=== PATIENT | male | born 1945 | race Caucasian/White ===

== ENCOUNTER → 2023-05-26 07:18 | Outpatient (REF) | payer MEDICARE, OTHER, SELFPAY | LOC: RAD 07:18 | PROVIDERS: ATTENDING PHYSICIAN Family Medicine | DX: R10.9 Unspecified abdominal pain (principal) | CPT/HCPCS: 74176 ==

== ENCOUNTER → 2023-05-29 11:56 | Outpatient (REF) | payer MEDICARE, OTHER, SELFPAY | LOC: PAVMRI 11:56 | PROVIDERS: ATTENDING PHYSICIAN Specialist; FAMILY PHYSICIAN Family Medicine | DX: K86.2 Cyst of pancreas (principal) | CPT/HCPCS: 74183; A9575 ==

== ENCOUNTER → 2023-11-03 14:42 | Outpatient (REF) | payer MEDICARE, OTHER, SELFPAY | LOC: HWRAD 14:42 | PROVIDERS: ATTENDING PHYSICIAN Family Medicine | DX: N20.0 Calculus of kidney (principal) | CPT/HCPCS: 74176 ==

== ENCOUNTER 2023-12-12 06:11 | Day surgery (SDC) | payer MEDICARE, OTHER, SELFPAY ==
[2023-12-12] VITALS (8 sets, daily range): BP systolic 112–147; BP diastolic 49–73; BMI 23.9
[2023-12-12 10:02] LABS: Glucose - Point of Care 96 mg/dl (70-99)
[2023-12-12] MEDS: TYLENOL 1000 MG PO (10:16)
[2023-12-12] MEDS: NORMOSOL-R/PLASMALYTE-A 1000 IV (10:18)
--- NOTE | 2023-12-12 10:27 | W.SUR.PREOP ---
Pre-Operative Surgical Note
-
I have examined this patient prior to the performance of the scheduled procedure.
The patient's condition is unchanged from the time of the current History and
Physical and the patient is able to undergo the scheduled procedure.
--- NOTE | 2023-12-12 12:24 | W.IMMPOSTOP ---
Surgical Immed Post Op Note
-
Primary Surgeon: Samy Joseph MD
Assisting Surgeon: None
Pre-op Diagnosis: Biliary colic
Post-op Diagnosis: Same
Procedure Performed: Laparoscopic cholecystectomy with cholangiogram
Anesthesia Type: General
Specimen / Cultures: Gallbladder and contents
Estimated Blood Loss: 7 cc
Complications: None
Operative Findings: Fairly normal-appearing gallbladder with a fatty cystic triangle. Critical view of safety obtained prior to a cholangiogram which demonstrated no distal filling defects and normal biliary anatomy. Duct ligated with a clip
followed by a 0 PDS Endoloop.
--- NOTE | 2023-12-12 12:25 | OR.RPT ---
Operative Report
Operative Report
Patient Name: Kevon Montes
: 1945
Date of Operation: 12/12/2023
Preoperative Diagnosis: Symptomatic Cholelithiasis
Postoperative Diagnosis: Same
Procedure(s):
Laparoscopic Cholecystectomy with Cholangiogram
Surgeon(s):
Dr. Joseph
Learning Technologist(s):
MATA Young
Anesthesia: General
Estimated Blood Loss: 7 cc
Urine Output: None
Drains/Lines/Implants: None
Specimens:
1. Gallbladder and contents
HPI/Surgical Indications:
This is a 78-year-old male who presents with abdominal pain. Exam, labs and imaging are consistent with symptomatic cholelithiasis. Risks/Benefits/Alternatives were discussed at length, and the patient agreed to proceed with surgery.
Operative Findings: Fairly normal-appearing gallbladder with a fatty cystic triangle. Critical view of safety obtained prior to a cholangiogram which demonstrated no distal filling defects and normal biliary anatomy. Duct ligated with a clip
followed by a 0 PDS Endoloop.
Procedure Description:
The patient was brought to the Operating Room and placed in the supine position. IV antibiotics were infused and sequential compression devices were confirmed to be on. Following uneventful induction of general endotracheal anesthesia, an
orogastric tube was placed. The abdomen was prepped and draped in the usual sterile fashion. The abdomen was entered using an open infraumbilical Eulogio technique with a 12 mm balloontipped trocar. Pneumoperitoneum to 15 mmHg pressure was obtained
without difficulty and we confirmed that no injury had occurred during our entry. The patient was positioned in reverse trendelenberg and rotated with the right side up slightly. Three (3) 5mm trocars were then placed along the right subcostal
margin. A locking grasping forceps was placed on the fundus of the gallbladder where it was then retracted cephalad and to the right. Using appropriate grasping instruments, the peritoneum overlying the triangle of Calot was incised. The cystic
duct/gallbladder junction was identified, dissected circumferentially. The cystic artery was identified medially and was dissected circumferentially. A critical view was obtained. A clip was then placed on the cystic duct/gallbladder junction and
an intraoperative cholangiogram performed using fluoroscopy, which showed good flow of dye into the duodenum. There were no intra- or extrahepatic bile duct filling defects. The biliary anatomy appeared normal. Following completion of the
cholangiogram, the catheter was removed. Two clips were then placed proximally on the cystic duct and the duct divided. The stump was reinforced with a 0 PDS Endoloop. Two clips were placed proximally and one distally on the cystic artery, and
the artery was divided. There was an additional branch which appeared to be posterior cystic artery which was also clipped and divided. The remaining soft tissue attachments of the gallbladder to the liver bed were then divided using
electrocautery. There was no spillage of bile or stones. The gallbladder bed was inspected and excellent hemostasis was obtained. The gallbladder was extracted through the 12 mm trocar site using an endocatch bag. The abdomen was again irrigated
and excellent hemostasis was assured. All remaining trocars were then removed and the pneumoperitoneum was evacuated. The 12 mm trocar site was closed using a figure of 8 of 0 PDS. All trocar sites were closed at the skin level using 4-0 Monocryl
followed by Dermabond. Overall, the patient tolerated the procedure well and was taken to the Recovery Room postoperatively in stable condition.
I was the attending physician and performed the procedure with assistance from the FISHING LINE WINDING MACHINE OPERATOR above. I was present for all portions of the case, excluding skin closure.
Samy Joseph MD
[2023-12-12 13:21] LABS: Glucose - Point of Care 202 mg/dl (70-99)
[2023-12-12] MEDS: MOTRIN 600 MG PO (13:32)
== END 2023-12-12 14:32 | disposition home or self-care (01) ==
LOC: SDS 06:11
PROVIDERS: ATTENDING PHYSICIAN Surgery
DX: K80.10 Calculus of gallbladder with chronic cholecystitis without obstruction (principal)
CPT/HCPCS: 47563; 88304; 74300; 76000; 82962; A4300

== ENCOUNTER → 2024-10-04 13:18 | Outpatient (REF) | payer MEDICARE, OTHER, SELFPAY | LOC: PAVMRI 13:18 | PROVIDERS: ATTENDING PHYSICIAN Specialist; FAMILY PHYSICIAN Family Medicine | DX: K86.2 Cyst of pancreas (principal) | CPT/HCPCS: 74183; A9575 ==

== ENCOUNTER 2025-02-15 23:37 | Inpatient (IN) | payer MEDICARE, OTHER, SELFPAY ==
[2025-02-15 20:19] VITALS: BP 144/68
[2025-02-15 20:25] VITALS: BMI 25.2
[2025-02-15 20:26] LABS: Hematocrit 33.9 % (39.0-52.0); Hemoglobin 11.8 g/dL (13.0-18.0); Mean Corp Hgb Conc. 34.8 g/dL (33.0-37.0); Mean Corpuscular Volume 84.8 fL (80.0-94.0); Nucleated Red Blood Cells % 0 % (-); Platelet Count 201 10^3/uL (130-400); Red Cell Dist. Width 12.5 % (11.5-14.5)
[2025-02-15] MEDS: NSS 1000 IV (20:29)
[2025-02-15 20:49] LABS: ALT (SGPT) 30 U/L (0-50); AST (SGOT) 31 U/L (17-59); Albumin 4.5 g/dl (3.5-5.0); Alkaline Phosphatase 49 U/L (38-126); Blood Urea Nitrogen 18 mg/dl (9-20); Calcium 9.8 mg/dl (8.4-10.2); Carbon Dioxide 24 mmol/L (22-30); Chloride 95 mmol/L (98-107); Estimated Creatinine Clearance 32 ml/min; Glucose 124 mg/dl (70-99); Lipase 182 U/L (23-300); Potassium 3.6 mmol/L (3.5-5.1); Sodium 128 mmol/L (135-145); Total Protein 7.2 g/dl (6.3-8.2); eGFR 41.01
[2025-02-15 21:23] LABS: Urine Character Clear (Clear)
[2025-02-15 21:31] LABS: Urine Squamous Cell 0-2 /LPF (Few)
[2025-02-15 21:32] LABS: Urine White Cell 0-2 /HPF (0-5)
[2025-02-15 21:51] VITALS: BP 114/61
--- NOTE | 2025-02-15 22:13 | ED.GENMED ---
History of Present Illness
General
Chief Complaint: Flank Pain
Source: patient
Exam Limitations: none
Time Seen by Provider: 02/15/25 20:20
Nursing documentation reviewed up to this point in time: agreed with
History of Present Illness
History of Present Illness:
79-year-old male with history as noted presents to the ER for evaluation of flank pain. Patient reports onset of symptoms 4 days ago and symptoms have been intermittent but generally worsening over that period of time. He reports a sharp pain in
the right flank radiates towards the mid back. No clear triggering or relieving factors noted. Associated with mild nausea but no vomiting. Denies any dysuria, hematuria, change urinary frequency. No diarrhea or constipation. He reports similar
symptoms with kidney stones in the past. He received Zofran and Toradol from EMS and that seemed to improve his symptoms.
Review of Systems
Review of Systems
All Other Systems: ROS reviewed and negative except as documented in HPI and ROS
Constitutional: Denies fever
Respiratory: Denies trouble breathing
Cardiac: Denies chest pain
ABD/GI: Reports abdominal pain and nausea; Denies vomiting, diarrhea or constipated
: Reports flank pain; Denies dysuria, frequency or bleeding
Musculoskeletal: Denies neck pain
Neurological: Denies headache
Phy Exam
Physical Exam
Physical Exam:
General: Awake, alert, oriented x3; no acute distress
Head: Normocephalic, atraumatic
Eyes: Conjunctiva normal, sclera anicteric
Throat: Airway intact, handling secretions
Neck: Trachea midline, supple without meningismus
Lungs: Clear to auscultation bilaterally, no wheezing, rales, rhonchi
Heart: Regular rate and rhythm, no murmurs, gallops, or rubs
Abd: Soft, non distended, nontender
Back: No CVA tenderness
Neuro: Grossly intact
Skin: no rash in area of concern
Extremities: Warm well-perfused
Scores
Heart Failure Risk
Heart Failure Risk Score: Not Applicable
Heart Score for Chest Pain Patients
STEMI patient?: Not applicable
Withdrawal Assessment of Alcohol
Withdrawal Assessment Completed?: Not applicable
Course
Orders/Labs/Results
Orders:
Orders
02/15/25 20:18
Complete Blood Count/With Diff Urgent
Comprehensive Metabolic Panel Urgent
Lipase Urgent
02/15/25 20:26
CT Abd/pel Without Iv Or Oral Urgent
Comment:
Reason For Exam: right flank pain, h/o kidney stones
0.9% Sodium Chloride 1000 ml [Nss] 1,000 ml IV BOLUS
02/15/25 21:16
Urinalysis Reflex To Culture Urgent
Date Specimen was Collected: 02/15/25
Time Specimen was Collected: 21:13
Urine Microscopic Reflex Cult Urgent
02/15/25 22:06
Morphine Sulfate 4 mg IV NOW STA
02/15/25 22:45
UROLOGY CONSULT Urgent
Consulting Provider: Gerry Juarez
Was physician already notified: Yes
Tamsulosin [Flomax] 0.4 mg PO NOW STA
Abnormal Lab Results
02/15/25 02/15/25
20:18 21:16
RBC 4.00 L 10^6/uL
(4.70-6.10)
Hgb 11.8 L g/dL
(13.0-18.0)
Hct 33.9 L %
(39.0-52.0)
Absolute Neuts (auto) 6.9 H 10^3/uL
(1.4-6.5)
Absolute Monos (auto) 1.0 H 10^3/uL
(0.1-0.6)
Lymphocytes % 13.0 L %
(20.5-51.1)
Monocytes % 11.1 H %
(1.7-9.3)
Sodium 128 L mmol/L
(135-145)
Chloride 95 L mmol/L
(98-107)
Creatinine 1.7 H mg/dL
(0.7-1.3)
Glucose 124 H mg/dl
(70-99)
Ur Occult Blood Reflex 3+ A
(Negative)
Urine RBC 3-6 A /HPF
(0-2)
Urine Albumin (Reflex) 1+ A
(Neg - Trace)
02/15/25 20:18
02/15/25 20:18
Vital Signs
Initial and Last Documented VS:
Initial Vital Signs
Temp Pulse Resp BP Pulse Ox
36.9 C 80 18 144/68 97
02/15/25 20:19 02/15/25 20:19 02/15/25 20:19 02/15/25 20:19 02/15/25 20:19
Last Documented Vital Signs
Temp Pulse Resp BP Pulse Ox
36.9 C 72 18 114/61 95
02/15/25 20:19 02/15/25 21:51 02/15/25 21:51 02/15/25 21:51 02/15/25 22:16
MDM/Problems Addressed
Differential Diagnosis Includes:
Nephrolithiasis, UTI, appendicitis, cholelithiasis/cholecystitis, muscular pain
MDM/Problems Addressed:
79-year-old male presents for evaluation of right flank pain for the past few days similar to prior kidney stones. Received Zofran and Toradol from EMS which improved his symptoms. Vital signs are normal here. Physical exam as above. Will plan
to place an IV check labs including a CBC and a CMP, urinalysis. Will check CT abdomen. Provide IV fluids. Nausea and pain control as needed. Reassess after the above.
Labs reviewed: CBC shows no clinically significant abnormalities. Chemistry shows NAYE with a creatinine of 1.7 from baseline of 1.1. Mild hyponatremia. His urinalysis is positive for blood but no infection. CT reviewed by me shows obstructive
stone at the distal UVJ on the right with hydronephrosis�awaiting final report.
CT report reviewed�9 mm stone at the UVJ with hydronephrosis. With very large stone and NAYE will plan to admit for continued management. Discussed case with urology for consultation. Discussed case with hospitalist for admission.
*Radiology
Radiology exam reviewed: preliminary read by ED provider and radiology read reviewed
*Pulse Oximetry
SaO2: 95
Oxygen Mode of Delivery: Room air
Patient hypoxic: no (95%)
*Critical Care Note
Total Time (30-74mins, 75-104mins- exclusive of procedures): Not Applicable
Data Reviewed
Source: patient, records and ambulance crew
Patient Management
Discussion with other providers: Hospitalist (Discussed with hospitalist) and Pool Table Operator (Discussed with urology)
Escalation/DeEscalation of care consider admission/obs:
Admission indicated
ED Attending Note
-
Portions of this chart may have been created with voice recognition software.� Occasional wrong word or��sound alike� substitutions may have occurred due to the inherent limitations of voice recognition software.
Discharge Plan
Departure
Patient Disposition: Admit
Date of Disposition: 02/15/25
Time of Disposition: 22:46
Admit to doctor: Le[facility]
Presentation/result/management discussed w/ accepting MD/DO: Hospitalist
Discharge Problem:
Right nephrolithiasis, NAYE (acute kidney injury)
Prescriptions:
No Action
B12
1,000 mcg PO DAILY
multivitamin Tablet
1 tab PO DAILY
amlodipine 5 mg Tablet
5 mg PO DAILY
aspirin 81 mg Tablet,Delayed Release (Dr/Ec)
81 mg PO DAILY
tamsulosin 0.4 mg Capsule
0.4 mg PO DAILY
ascorbic acid (vitamin C) [Vitamin C] 250 mg Tablet
250 mg PO DAILY
metformin 1,000 mg Tablet
1,000 mg PO BID
ferrous gluconate 240 mg (27 mg iron) Tablet
480 mg PO DAILY
metoprolol succinate 25 mg Tablet Extended Release 24 Hr
25 mg PO BID
loratadine [Claritin] 10 mg Tablet
10 mg PO DAILY
esomeprazole magnesium 20 mg Capsule,Delayed Release(Dr/Ec)
20 mg PO Q48H
rosuvastatin 20 mg Tablet
20 mg PO DAILY
acetaminophen [acetaminophen] 325 mg tablet
650 mg PO Q6HPRN PRN (Reason: mild pain) Qty: 14 0RF
tramadol 50 mg tablet
25 mg PO Q6HPRN PRN (Reason: severe pain/breakthrough pain) Qty: 8 0RF
ibuprofen 600 mg tablet
600 mg PO Q6H PRN (Reason: pain) Qty: 14 0RF
Referrals:
Steve Martin MD [Family Provider, Family Practice]
Interventions
Interventions:
*Risk Screen - Suicide Last Done: 02/15/25 20:25
*General Assessment Last Done: 02/15/25 20:25
*Neglect/Abuse Screening Last Done: 02/15/25 20:25
*ED- Fall Risk Assessment Last Done: 02/15/25 20:25
*ED COVID-19 Vaccine History Last Done: 02/15/25 20:25
*ED Influenza Vaccine History Last Done: 02/15/25 20:25
YI-Xlhiln-Bznfajurmv Assessment Last Done: 02/15/25 20:24
ED-Male Genitourinary Assessment Last Done: 02/15/25 20:24
Discharge Date and Time
Print Language: SLOVENIAN
--- NOTE | 2025-02-15 23:16 | HPS.HSE ---
Family Physician
-
Family Physician: Steve Martin
Chief Complaint
-
Acute onset right flank pain
History of Present Illness
79-year-old male from home with acute onset of right flank pain with urgency 30 minutes prior to arrival in ER. He reports he did have pain 4 days ago that went away but came back today associated with mild nausea but no vomiting. He had past
medical history of obstructing renal calculi in his 20s requiring cystoscopy with stone removal and stent placement. He denies any fever, chills, dysuria, hematuria, vomiting, diarrhea, chest pain, palpitations, cough, shortness of breath.
Past medical history renal calculi, iron deficiency anemia, HTN, HLD, PVCs, prostate cancer status post radiation, DM2, GERD, hiatal hernia, diverticulosis, chronic neck and back pain, herniated disks
Medical History
Past Medical History
Past Medical History: Reports Other
Additional Past Medical History:
renal calculi
iron deficiency anemia
HTN
HLD
PVCs
prostate cancer status post radiation
DM2
GERD
hiatal hernia
diverticulosis
chronic neck and back pain, herniated disks
Past Surgical History: Reports Other
Additional Past Surgical History:
Laparoscopic cholecystectomy with cholangiogram 12/12/2023
Cystoscopy 50 years ago
Tonsillectomy
Renal calculi status post cystoscopy stone removal and stents in his 20s
Social History
Tobacco: Non-smoker
Alcohol: None
Drug: None
Employment: Retired
Family History
Family History: Not pertinent
Allergies / Home Medications
Allergies reflects when Allergies were last updated in [facility].
Home Medications with original date entered in [facility]
Allergy/Medication List:
Allergies
Allergy/AdvReac Type Severity Reaction Status Date / Time
meperidine (From Demerol) Allergy Nausea / Verified 02/15/25 20:17
Vomiting
Home Medications
amlodipine 5 mg tablet 5 mg PO DAILY 12/01/23
ascorbic acid (vitamin C) 250 mg tablet (Vitamin C) 120 mg PO DAILY 12/01/23
aspirin 81 mg tablet,delayed release 81 mg PO DAILY 12/01/23
esomeprazole magnesium 20 mg capsule,delayed release 20 mg PO Q48H 12/01/23
loratadine 10 mg tablet (Claritin) 10 mg PO DAILY 12/01/23
metformin 1,000 mg tablet 500 mg PO BID 12/01/23
metoprolol succinate 25 mg tablet,extended release 24 hr 25 mg PO .DAILYATNOONANDMN 12/01/23
multivitamin 1 tab PO DAILY 12/01/23
rosuvastatin 20 mg tablet 20 mg PO DAILY 12/01/23
tamsulosin 0.4 mg capsule 0.4 mg PO DAILY 12/01/23
acetaminophen 325 mg tablet 650 mg (2 x 325 mg) PO Q6HPRN PRN mild pain #14 tabs 12/12/23
folic acid 400 mcg tablet 0.8 mg PO DAILY 02/15/25
Review of Systems
-
History Source: Patient
A 12 point ROS was completed and negative except as noted: Yes
Constitutional: Denies Fever or Fatigue
EENT: Denies Sore Throat or Runny Nose
Respiratory: Denies Cough or Trouble Breathing
Cardiac: Denies Chest Pain, Diaphoresis or Palpitations
Abdomen/GI: Reports Abdominal Pain (Right flank) and Nausea; Denies Vomiting, Diarrhea or Constipated
: Reports Flank Pain (Right) and Urgency; Denies Dysuria, Frequency, Incontinence or Difficulty Voiding
Musculoskeletal: Denies Joint Pain or Edema
Skin: Denies Itching or Rash
Neurological: Denies Dizzy, Headache or Weakness
Endocrine: Reports No Symptoms
Hematologic/Lymphatic: Reports No Symptoms
Psych: Reports Calm
Physical Exam
Vital Signs
Vital Signs
Temp Pulse Resp BP Pulse Ox
98.5 F 72 18 114/61 95
02/15/25 20:19 02/15/25 21:51 02/15/25 21:51 02/15/25 21:51 02/15/25 22:16
Physical Exam
General: Conversant and Pain; No Fever or Chills
HEENT: NormoCephalic, Anicteric, Moist mucous membranes, PERRLA, [place] Conjunctivae and No Ptosis
Respiratory: Clear; No Wheezes, Rales or Rhonchi
Cardiac: S1/S2 and Regular Rhythm; No Murmur, Rub, Gallop or Peripheral Edema
Breast: Deferred by me
GI: Soft, Non Distended, Normal Bowel Sounds, Tender (Right flank pain) and No Hepatosplenomegaly
Rectal: Deferred by Provider
Genito-urinary: Costovertebral angle tend (Right)
Musculoskeletal: No Clubbing, No Cyanosis and No Edema
Skin: Warm and Dry; No Rash
Neuro: AO x 3, No Motor Deficits, Nonfocal/grossly intact, Cranial Nerves Intact and No Sensory Deficits; No Slurred Speech, Facial Droop, Tremors or Sedated
Psych: Calm
Laboratory Results
-
02/15/25 20:18
02/15/25 20:18
Laboratory Results
Total Bilirubin 1.1 mg/dl (0.2-1.3) 02/15/25 20:18
AST 31 U/L (17-59) 02/15/25 20:18
ALT 30 U/L (0-50) 02/15/25 20:18
Alkaline Phosphatase 49 U/L (38-126) 02/15/25 20:18
Lipase 182 U/L (23-300) 02/15/25 20:18
Data Reviewed
-
Diagnostic Radiology: Report Reviewed by me
Lab Data: Labs Reviewed by me
Impression/Plan
-
Impression/plan:
Admit to MedSurg
#Obstructing right UVJ calculus with moderate right hydroureteronephrosis
#Renal calculi status post cystoscopy stone removal and stents in his 20s
Urinalysis RBC 3-6 0-2 WBC
- IV NSS 150 cc/hr x 1 liter
-IV Dilaudid as needed
-Was given IV Toradol in ER and by EMS will hold further doses due to NAYE
- Flomax 0.4 mg daily
- Consult urology
- N.p.o. for OR a.m.
Follow CBC, CMP
CT abdomen pelvis:9 mm calculus at the right ureterovesical junction with
associated moderate right hydroureteronephrosis.
#NAYE unclear
Creat 1.7 increased from 1.1 baseline
-IV NSS 150 cc/hr
-Follow BMP
#Hyponatremia poss hypovolemic
NA 128
-Will hydrate follow BMP
- check tsh with free t4 refelx, urine na, urine osmo, serum osmo
#Normocytic anemia/iron deficiency
Hgb 11.8 appears near baseline
-Continue folic acid
#HTN
-Continue metoprolol succinate 25 mg twice daily with hold parameters, amlodipine 5 mg daily with hold parameters
#HLD
Continue Crestor 20 mg daily
#PVCs
- Continue metoprolol
#Prostate cancer status post radiation
#DM 2
-Hold metformin
-Accu-Cheks with SSI, check HgbA1c
#GERD
#Hiatal hernia
-Continue esomeprazole or equivalent
#Diverticulosis Hx
#Chronic neck and back pain herniated disks
Tylenol as needed
#Seasonal allergies
Takes Claritin 10 mg daily
DVT prophylaxis
SCDs
Full code
[2025-02-15 23:28] VITALS: BP 130/65
[2025-02-15] MEDS: FLOMAX 0.4 MG PO (23:30)
[2025-02-15] MEDS: TORADOL 15 MG IV (23:31)
--- NOTE | 2025-02-15 23:55 | W.PN.UPDATE ---
Update Note
Progress Note Update
Patient seen in conjunction with nurse practitioner. I agree with the plan/M0. I concur with assessment and plan listed otherwise.
Briefly, this is a 79-year-old male with past medical history significant for GERD, hypertension, nvl-xuzddxz-xqvhkguzi diabetes, hyperlipidemia BPH presenting to the emergency department with acute episode of right-sided flank pain. Symptoms began
only a few minutes prior to coming to the Emergency Department. Denies fevers or chills. Denies nausea or vomiting.
In the ED patient was afebrile, blood pressure open cardiovascular-pulse was 80 and was satting 96% on room air. CBC was completely unremarkable. Electrolytes notable for a sodium of 128. Creatinine was 1.70 from a baseline of 1.1 about [address] scan of the abdomen pelvis showed a 9 mm obstructive stone at the right UVJ.
Assessment and plan
Obstructing nephrolithiasis -
- Admit to MedSurg
- N.p.o.
- Start tamsulosin,
- IV fluids, unlikely to pass
- Urology consulted, patient going to OR in a.m.
- No signs of acute infection, hold off antibiotic
NAYE -creatinine 1.7 from a baseline of 1.1. Possibly has asymmetrical renal function with obstruction on the more functional kidney likely. Does not appear to be dehydrated.
- Aggressive hydration for now
- Avoid nephrotoxin
- Will use pain control with Dilaudid
- Monitor renal function post decompression
Hyponatremia -pain mediated ADH versus chronic hyponatremia
-IV fluids as above
- Check urine sodium and awesome's
- Patient is not on any diuretics
- Check a.m. cortisol and TSH
DM 2
- Holding metformin, sliding scale insulin
DVT prophylaxis�SCDs for now
CODE STATUS�full code
[2025-02-16] VITALS (11 sets, daily range): BP systolic 88–164; BP diastolic 45–86; BMI 24.8
--- NOTE | 2025-02-16 01:15 | PTCARENOTE ---
pt arrived to 2S from ED @ 0115. Pt ambulated to the bed w/o difficulty. Pt AOX3, VSS. Admission assessment complete. IVF initiated as per order. Pt oriented to room, call chauhan within reach, bed locked in lowest position, care ongoing.
[2025-02-16] MEDS: NSS 1000 IV ×2 (01:33→09:09)
[2025-02-16] MEDS: TOPROL XL 25 MG PO ×2 (01:33→18:28)
[2025-02-16 06:04] LABS: Glucose - Point of Care 98 mg/dl (70-99)
[2025-02-16] MEDS: TYLENOL 650 MG PO (06:06)
[2025-02-16 06:33] LABS: Hematocrit 34.6 % (39.0-52.0); Hemoglobin 11.7 g/dL (13.0-18.0); Mean Corp Hgb Conc. 33.8 g/dL (33.0-37.0); Mean Corpuscular Volume 90.1 fL (80.0-94.0); Nucleated Red Blood Cells % 0 % (-); Platelet Count 174 10^3/uL (130-400); Red Cell Dist. Width 12.5 % (11.5-14.5)
[2025-02-16 07:23] LABS: ALT (SGPT) 26 U/L (0-50); AST (SGOT) 26 U/L (17-59); Albumin 3.8 g/dl (3.5-5.0); Alkaline Phosphatase 48 U/L (38-126); Blood Urea Nitrogen 18 mg/dl (9-20); Calcium 9.0 mg/dl (8.4-10.2); Carbon Dioxide 25 mmol/L (22-30); Chloride 103 mmol/L (98-107); Estimated Creatinine Clearance 30 ml/min; Glucose 86 mg/dl (70-99); Sodium 136 mmol/L (135-145); Total Protein 6.3 g/dl (6.3-8.2); eGFR 38.29
[2025-02-16 07:30] LABS: Potassium 3.9 mmol/L (3.5-5.1)
--- NOTE | 2025-02-16 07:41 | W.PN.HOSP.TC ---
Today's Communication/Plan
-
OR today
Assessment / Plan
Assessment / Plan
79M with GERD, HTN, DM, HLD, BPH, P/W acute R flank pain, found to have obstructive nephrolithiasis.
Obstructive nephrolithiasis
NAYE, postrenal
CT shows 9 mm obstructive stone at right UVJ
Creatinine 1.8, monitor BMP
Urology consulted, patient n.p.o. for OR today
IVF
IV Dilaudid for pain
Tamsulosin
Moderate hyponatremia, asymptomatic-resolved
128��>136
Resolved with IV fluids
Urine sodium 38, urine Osm low at 222. Serum Osm 277
TSH WNL
Hypochloremia�resolved
Resolved with IV fluids
HTN
Beta-valdo, amlodipine
DM2
Hold home metformin
SSI/Accu-Cheks
A1c pending
GERD
PPI
DVT PPx
SCDs
FC
Anticipated Discharge: 24 - 48 hours
Subjective/Interval History
-
Date of Service: February 16, 2025
Patient seen prior to surgery, states pain improved from admission
Objective Data
-
Labs:
Laboratory Results
02/15/25 02/16/25
20:18 05:50
WBC 9.3 7.1
Hgb 11.8 L 11.7 L
Hct 33.9 L 34.6 L
Plt Count 201 174
Sodium 128 L 136 D
Potassium 3.6 3.9
Chloride 95 L 103
Carbon Dioxide 24 25
BUN 18 18
Creatinine 1.7 H 1.8 H
Glucose 124 H 86
Calcium 9.8 9.0
Total Bilirubin 1.1 1.2
AST 31 26
ALT 30 26
Alkaline Phosphatase 49 48
Vital Signs:
Vital Signs
Temp Pulse Resp BP Pulse Ox
98.5 F 72 16 143/65 98
02/16/25 01:20 02/16/25 01:33 02/16/25 01:20 02/16/25 01:33 02/16/25 01:20
I&O
02/15/25 02/16/25 02/17/25
06:59 06:59 06:59
Intake Total 825 / 825
Output Total 425 / 425
Balance 400 / 400
Review of Systems
-
All other systems: Reviewed and negative
Physical Exam
-
General: No Apparent Distress
HEENT: Moist Mucous Membranes, Anicteric and PERRLA
Respiratory: Clear to Auscultation; Negative Wheezes, Rales or Rhonchi
Cardiac: Regular Rhythm and S1/S2; Negative Murmur, Rub or Gallop
GI: Soft, Nontender, Nondistended and Normal Bowel Sounds
Musculoskeletal: No Edema
Skin: Warm and Dry; Negative Rash, Ulcers or Lesions
Neuro: Awake and AO x 3
Hematologic / Lymphatic: No Lymphadenopathy
Psych: Calm
Data Reviewed
-
CT Scan: Report Reviewed by me
Labs: Labs Reviewed by me and Discussed with Patient
[2025-02-16] MEDS: CRESTOR 20 MG PO (08:46)
[2025-02-16] MEDS: PROTONIX 40 MG PO (08:46)
[2025-02-16] MEDS: CLARITIN 10 MG PO (08:46)
[2025-02-16] MEDS: FOLVITE 1 MG PO (08:46)
[2025-02-16] MEDS: FLOMAX 0.4 MG PO (08:46)
--- NOTE | 2025-02-16 10:01 | CONS.URO ---
Consultation
-
Date/Time Consultation Performed: 02/16
Performing Provider: Peffer
Reason for Consultation: stone
Medical History
History of Present Illness
79M p/w acute onset of right flank pain with urgency 30 minutes prior to arrival in ER last night
He reports he did have pain 4 days ago that went away but came back associated with mild nausea but no vomiting.
He had past medical history of obstructing renal calculi in his 20s requiring cystoscopy with stone removal and stent placement.
He denies any fever, chills, dysuria, hematuria, vomiting, diarrhea, chest pain, palpitations, cough, shortness of breath.
CT showed a 9mm R distal ureteral stone
No signs of sepsis or systemic infection
He was admitted due to significant NAYE
Past medical history renal calculi, iron deficiency anemia, HTN, HLD, PVCs, prostate cancer status post radiation, DM2, GERD, hiatal hernia, diverticulosis, chronic neck and back pain, herniated disks
Past Medical History
Past Medical History: Other (as above)
Family History
Family History: Reviewed & Not Pertinent
Allergies/Home Medications
Allergies
Allergy/AdvReac Type Severity Reaction Status Date / Time
meperidine (From Demerol) Allergy Nausea / Verified 02/15/25 20:17
Vomiting
Home Medications
�Medication �Instructions �Recorded �Confirmed �Type
amlodipine 5 mg tablet 5 mg PO DAILY 12/01/23 02/15/25 History
ascorbic acid (vitamin C) 250 mg 120 mg PO DAILY 12/01/23 02/15/25 History
tablet (Vitamin C)
aspirin 81 mg tablet,delayed 81 mg PO DAILY 12/01/23 02/15/25 History
release
esomeprazole magnesium 20 mg 20 mg PO Q48H 12/01/23 02/15/25 History
capsule,delayed release
loratadine 10 mg tablet (Claritin) 10 mg PO DAILY 12/01/23 02/15/25 History
metformin 1,000 mg tablet 500 mg PO BID 12/01/23 02/15/25 History
metoprolol succinate 25 mg 25 mg PO .DAILYATNOONANDMN 12/01/23 02/15/25 History
tablet,extended release 24 hr
multivitamin 1 tab PO DAILY 12/01/23 02/15/25 History
rosuvastatin 20 mg tablet 20 mg PO DAILY 12/01/23 02/15/25 History
tamsulosin 0.4 mg capsule 0.4 mg PO DAILY 12/01/23 02/15/25 History
acetaminophen 325 mg tablet 650 mg (2 x 325 mg) PO Q6HPRN PRN 12/12/23 02/15/25 Rx
mild pain #14 tabs
folic acid 400 mcg tablet 0.8 mg PO DAILY 02/15/25 02/15/25 History
Physical Exam
Vital Signs
Vital Signs
Temp Pulse Resp BP Pulse Ox
98.3 F 61 16 117/54 96
02/16/25 07:05 02/16/25 07:05 02/16/25 07:05 02/16/25 07:05 02/16/25 07:05
Lab / Testing Results
Laboratory Results
02/16/25 05:50
02/16/25 05:50
Physical Exam
General: Well Developed, Well Nourished and No Apparent Distress
Respiratory: Clear
Genito-urinary: No Costovertebral Tend
Neuro: AO x 3
Psych: Calm and Intact Judgement
Assessment / Plan
-
79M with NAYE from 9mm R distal ureteral stone
- NPO
- OR this AM for R ureteroscopy/laser/stent
- Abx ppx
- Likely able to go home today
--- NOTE | 2025-02-16 10:07 | PTCARENOTE ---
Report given to PACU, CHG bath done per PCT, transport called and at bedside to take patient to OR.
--- NOTE | 2025-02-16 11:23 | W.IMMPOSTOP ---
Surgical Immed Post Op Note
-
Primary Surgeon: Peffer
Assisting Surgeon: -
Pre-op Diagnosis: R ureteral stone
Post-op Diagnosis: same
Procedure Performed: R ureteroscopy, laser, stone removal, stent placement
Anesthesia Type: general
Specimen / Cultures: stone
Estimated Blood Loss:1cc
Complications: none
Operative Findings: stone removed
[2025-02-16 11:29] LABS: Glucose - Point of Care 104 mg/dl (70-99)
[2025-02-16] MEDS: TOPROL XL PO ×2 (12:13→23:18)
--- NOTE | 2025-02-16 12:14 | TRANSFER ---
Received report from Jasmin in PACU @ 1200. Patient transferred back into 2105 via hospital bed. VSS. Continue with current care.
[2025-02-16 13:43] LABS: Blood Urea Nitrogen 17 mg/dl (9-20); Calcium 8.7 mg/dl (8.4-10.2); Carbon Dioxide 25 mmol/L (22-30); Chloride 105 mmol/L (98-107); Estimated Creatinine Clearance 32 ml/min; Glucose 110 mg/dl (70-99); Potassium 4.3 mmol/L (3.5-5.1); Sodium 137 mmol/L (135-145); eGFR 41.01
[2025-02-16 14:29] LABS: Glycohemoglobin (HgbA1c) 6.0 % (4.0-5.9)
--- NOTE | 2025-02-16 15:02 | CM ---
Initial assessment was completed with pt at bedside.
Pt is a 79yr old male admitted for obstructive kidney stone and received a ureteroscopy with lithotripsy.
At baseline, pt is indep and lives in a 2nd floor apartment. Per pt, there is an elevator, but he often chooses to do the steps.
Pt does not have DME or hx of VN/SNF
PCP Steve Martin
Pharm [facility] [place]
PLAN; Anticipate dc with no needs
[2025-02-16] MEDS: OCEAN, SALINE MIST 2 SPRAYS NASAL (16:38)
[2025-02-16 16:41] LABS: Glucose - Point of Care 130 mg/dl (70-99)
[2025-02-16] MEDS: NSS IV (17:07)
--- NOTE | 2025-02-16 19:26 | PTCARENOTE ---
~1814 Patient called staff to report he is 'having tachycardia', described as 'thumping', patient denies CP/SOB at this time. Patient M/S level of care at this time, VS taken and as documented. EKG performed and resulted NSR rate 92, picture of EKG
TT to Cross coverage MD, order to give patients already ordered 25mg PO XR metoprolol early and place on telemetry. Patient remains in NSR and admits to feeling better. Patient states this 'happens'. Call chauhan within reach, vitals stable, denies
pain, care ongoing. Report given to oncoming RN.
[2025-02-16 22:14] LABS: Glucose - Point of Care 261 mg/dl (70-99)
[2025-02-17] VITALS (7 sets, daily range): BP systolic 116–147; BP diastolic 53–69; PULSE 69
[2025-02-17] MEDS: NSS IV ×2 (01:06→04:32)
[2025-02-17] MEDS: TYLENOL 650 MG PO (04:33)
[2025-02-17 07:03] LABS: Hematocrit 34.9 % (39.0-52.0); Hemoglobin 11.5 g/dL (13.0-18.0); Mean Corp Hgb Conc. 33.0 g/dL (33.0-37.0); Mean Corpuscular Volume 89.5 fL (80.0-94.0); Nucleated Red Blood Cells % 0 % (-); Platelet Count 197 10^3/uL (130-400); Red Cell Dist. Width 12.7 % (11.5-14.5)
[2025-02-17 07:23] LABS: ALT (SGPT) 23 U/L (0-50); AST (SGOT) 24 U/L (17-59); Albumin 3.8 g/dl (3.5-5.0); Alkaline Phosphatase 50 U/L (38-126); Blood Urea Nitrogen 21 mg/dl (9-20); Calcium 8.8 mg/dl (8.4-10.2); Carbon Dioxide 26 mmol/L (22-30); Chloride 103 mmol/L (98-107); Estimated Creatinine Clearance 34 ml/min; Glucose 113 mg/dl (70-99); Potassium 4.1 mmol/L (3.5-5.1); Sodium 137 mmol/L (135-145); Total Protein 6.3 g/dl (6.3-8.2); eGFR 44.10
[2025-02-17 07:25] LABS: Glucose - Point of Care 111 mg/dl (70-99)
[2025-02-17] MEDS: FLOMAX 0.4 MG PO (08:21)
[2025-02-17] MEDS: FOLVITE 1 MG PO (08:21)
[2025-02-17] MEDS: CLARITIN PO (08:26)
[2025-02-17] MEDS: CRESTOR PO (09:36)
--- NOTE | 2025-02-17 10:00 | W.PN.HOSP.TC ---
Today's Communication/Plan
-
Continue IV fluids
Trend creatinine
Probable discharge tomorrow
Assessment / Plan
Assessment / Plan
HPI: 79M with GERD, HTN, DM, HLD, BPH, P/W acute R flank pain, found to have obstructive nephrolithiasis.
Obstructive nephrolithiasis
NAYE, postrenal
CT shows 9 mm obstructive stone at right UVJ
Appreciate urology input, status post cystoscopy with right ureteral stent placement 02/16
Creatinine 1.6 today, was 1.8, baseline value of 1.1 in 2022
Continue IVFs Flomax, trend creatinine
Tamsulosin
Moderate hyponatremia, asymptomatic-resolved
128��>136
Resolved with IV fluids
Urine sodium 38, urine Osm low at 222. Serum Osm 277
TSH WNL
Hypochloremia�resolved
Resolved with IV fluids
HTN
Beta-valdo, amlodipine
DM2
Hold home metformin
SSI/Accu-Cheks
A1c pending
GERD
PPI
DVT PPx - SCDs
Full code
Total time spent to see the patient on the floor, examine the patient, review data and lab results, discuss treatment plan with patient, nursing staff around 38 minutes.
Physical Exam
General: No acute distress
HEENT: Normocephalic, Atraumatic, EOMI, MMM
Respiratory: Clear to Auscultation bilaterally
Cardiac: Normal S1/S2, Regular Rate and Rhythm
GI: Soft, Nontender, Nondistended, Normal Bowel Sounds
Extremities: No Clubbing, Cyanosis, or Edema
Neuro: Nonfocal/Grossly Intact
Psych: Calm, Cooperative
Anticipated Discharge: Within 24 hours
Subjective/Interval History
-
Date of Service: February 17, 2025
Patient reports intermittent dysuria. Denies flank pain, abdominal pain. No nausea, no vomiting. No chest pain, no shortness of breath. No fever.
Objective Data
-
Labs:
Laboratory Results
02/17/25
06:39
WBC 11.9 H
Hgb 11.5 L
Hct 34.9 L
Plt Count 197
Sodium 137
Potassium 4.1
Chloride 103
Carbon Dioxide 26
BUN 21 H
Creatinine 1.6 H
Glucose 113 H
Calcium 8.8
Total Bilirubin 0.9
AST 24
ALT 23
Alkaline Phosphatase 50
Vital Signs:
Vital Signs
Temp Pulse Resp BP Pulse Ox
98.1 F 55 16 118/64 95
02/17/25 08:05 02/17/25 08:24 02/17/25 08:05 02/17/25 08:24 02/17/25 08:05
I&O
02/16/25 02/17/25 02/18/25
06:59 06:59 06:59
Intake Total 825 / 825 530 / 530
Output Total 425 / 425 1150 / 1150 500 / 500
Balance 400 / 400 -620 / -620 -500 / -500
[2025-02-17] MEDS: NSS 1000 IV ×2 (10:25→20:37)
--- NOTE | 2025-02-17 11:23 | PTOTSP ---
The patient is independent with ambulation and elevations, offering no concerns regarding his mobility upon discharge. No PT needs identified at this time, will sign off.
[2025-02-17 12:18] LABS: Glucose - Point of Care 129 mg/dl (70-99)
[2025-02-17] MEDS: TOPROL XL PO (12:22)
--- NOTE | 2025-02-17 14:18 | CM ---
CM following re: discharge planning.
Reviewed pt's chart.
PT and OT evaluations noted - pt has no skilled PT/OT needs.
D/C plan: home no needs. family to transport at discharge.
--- NOTE | 2025-02-17 16:14 | W.PN.URO.CBU ---
Today's Communication / Plan
-
Renal function improving
Typical stent symptoms - can take phenazopyridine as needed for dysuria
- Follow up approx 2 weeks for stent removal
Stable for discharge from urology standpoint
Assessment / Plan
-
79M POD 1 s/p R ureteroscopy of obstructing stone and NAYE
Renal function improving
Typical stent symptoms - can take phenazopyridine as needed for dysuria
- Follow up approx 2 weeks for stent removal
Stable for discharge from urology standpoint
Diagnosis
-
Date of Service: February 17, 2025
-
Patient Diagnosis: kidney stone
Post Op Day: 1 s/p ureteroscopy, stent
Subjective
-
some freuqunecy and hematuria from stent
Objective
-
Vital Signs
Temp Pulse Resp BP Pulse Ox
97.7 F 69 18 144/69 97
02/17/25 16:05 02/17/25 16:05 02/17/25 16:05 02/17/25 16:05 02/17/25 16:05
Intake and Output
02/16/25 02/17/25 02/18/25
06:59 06:59 06:59
Intake Total 825 / 825 530 / 530
Output Total 425 / 425 1150 / 1150 800 / 800
Balance 400 / 400 -620 / -620 -800 / -800
Intake:
Oral fluids 480 / 480
IV fluids (Total) 825 / 825 50 / 50
normosol 50 / 50
Output:
Urine, Voided 425 / 425 1150 / 1150 800 / 800
Laboratory Results
02/17/25 06:39
02/17/25 06:39
Physical Exam
-
General - well developed, well nourished, no acute distress
Chest - clear bilaterally
[2025-02-17 16:50] LABS: Glucose - Point of Care 114 mg/dl (70-99)
[2025-02-17 21:02] LABS: Glucose - Point of Care 131 mg/dl (70-99)
[2025-02-18] MEDS: TOPROL XL PO ×2 (00:45→12:01)
[2025-02-18 02:47] VITALS: BP 129/67
[2025-02-18 07:01] LABS: Glucose - Point of Care 86 mg/dl (70-99)
[2025-02-18 07:31] VITALS: BP 120/67
[2025-02-18] MEDS: CLARITIN PO (07:34)
[2025-02-18] MEDS: FOLVITE 1 MG PO (07:43)
[2025-02-18] MEDS: FLOMAX 0.4 MG PO (07:43)
[2025-02-18] MEDS: PROTONIX 40 MG PO (07:43)
[2025-02-18 07:53] LABS: Hematocrit 31.6 % (39.0-52.0); Hemoglobin 10.8 g/dL (13.0-18.0); Mean Corp Hgb Conc. 34.2 g/dL (33.0-37.0); Mean Corpuscular Volume 88.5 fL (80.0-94.0); Platelet Count 181 10^3/uL (130-400); Red Cell Dist. Width 12.9 % (11.5-14.5)
[2025-02-18 08:29] LABS: Blood Urea Nitrogen 19 mg/dl (9-20); Calcium 8.6 mg/dl (8.4-10.2); Carbon Dioxide 27 mmol/L (22-30); Chloride 108 mmol/L (98-107); Estimated Creatinine Clearance 38 ml/min; Glucose 82 mg/dl (70-99); Potassium 4.1 mmol/L (3.5-5.1); Sodium 137 mmol/L (135-145); eGFR 51.77
--- NOTE | 2025-02-18 08:46 | W.PN.HOSP.TC ---
Today's Communication/Plan
-
Discharge today
Assessment / Plan
Assessment / Plan
HPI: 79M with GERD, HTN, DM, HLD, BPH, P/W acute R flank pain, found to have obstructive nephrolithiasis.
Obstructive nephrolithiasis
NAYE, postrenal
CT shows 9 mm obstructive stone at right UVJ
Appreciate urology input, status post cystoscopy with right ureteral stent placement 02/16
Creatinine 1.4 today, was 1.8, baseline value of 1.1 in 2022
Continue Flomax
Medically stable for discharge, follow-up with urology in the office in 2 weeks
Moderate hyponatremia, asymptomatic-resolved
128��>137
Resolved with IV fluids
Urine sodium 38, urine Osm low at 222. Serum Osm 277
TSH WNL
Hypochloremia�resolved
Resolved with IV fluids
HTN
Patient is normaltensive without taking amlodipine, blood pressure 107/53
Patient is bradycardic with a heart rate of 54 without taking his metoprolol
Recommend that he discontinue amlodipine and metoprolol, follow-up with his PCP in 1 week for blood pressure check
DM2
Hold home metformin
SSI/Accu-Cheks
A1c 6
GERD
PPI
DVT PPx - SCDs
Full code
Physical Exam
General: No acute distress
HEENT: Normocephalic, Atraumatic, EOMI, MMM
Respiratory: Clear to Auscultation bilaterally
Cardiac: Normal S1/S2, Regular Rate and Rhythm
GI: Soft, Nontender, Nondistended, Normal Bowel Sounds
Extremities: No Clubbing, Cyanosis, or Edema
Neuro: Nonfocal/Grossly Intact
Psych: Calm, Cooperative
Anticipated Discharge: Today
Subjective/Interval History
-
Date of Service: February 18, 2025
Patient reports his dysuria is improving. He denies chest pain, denies shortness of breath. No flank pain, no back pain, no abdominal pain. No fever, no vomiting.
Objective Data
-
Labs:
Laboratory Results
02/18/25
06:39
WBC 7.9
Hgb 10.8 L
Hct 31.6 L
Plt Count 181
Sodium 137
Potassium 4.1
Chloride 108 H
Carbon Dioxide 27
BUN 19
Creatinine 1.4 H
Glucose 82
Calcium 8.6
Vital Signs:
Vital Signs
Temp Pulse Resp BP Pulse Ox
98.1 F 53 16 120/67 96
02/18/25 07:31 02/18/25 07:34 02/18/25 07:31 02/18/25 07:31 02/18/25 07:31
I&O
02/17/25 02/18/25 02/19/25
06:59 06:59 06:59
Intake Total 530 / 530 1200 / 1200
Output Total 1150 / 1150 2150 / 2150
Balance -620 / -620 -950 / -950
--- NOTE | 2025-02-18 10:21 | W.DCSUMMARY ---
Discharge Summary
Discharge Data
Date of Admission: 02/15/25
Date of Discharge: 02/18/25
-
Pending Results: No
Hospital Course
Discharge diagnosis:
Right ureterolithiasis with obstruction
Acute kidney injury, post renal
Moderate hyponatremia
History of essential hypertension, now normotensive
Sinus bradycardia
Diabetes
Gastroesophageal reflux disease
Prostate cancer status post radiation
Hospital course:
79-year-old male with a past medical history of hypertension, diabetes, and prostate cancer status post radiation, presented with right flank pain, and was found to have right ureterolithiasis with obstruction. Patient was seen in conjunction with
urology. He was treated with IV fluids, Flomax, and pain medications. He underwent cystoscopy with right ureteral stent placement 02/16/2025. He did well, his pain resolved. He did have some residual intermittent dysuria, which continued to
improve.
Patient also had acute kidney injury. His creatinine was as high as 1.8. He was treated with IV fluids, and his Cr trended down to 1.4. The only baseline value we have in the system is 1.1 in 2022.
Patient had sinus bradycardia in the hospital. He was asymptomatic. He was bradycardic even without taking metoprolol. Recommend that he permanently discontinue his metoprolol.
Patient has a history of essential hypertension. He was normotensive without taking his amlodipine. Recommend that he permanently discontinue his amlodipine.
Patient is medically stable and cleared by urology for discharge. He needs to follow-up with urology in the office in 2 weeks, as well as his PCP in 1 week.
Disposition: Home self-care
Discharge planning: Required 40 minutes
Discharge Plan
-
Patient Disposition: Home (Routine Discharge)
Discharge Diagnosis/Procedures: Obstructing right ureteral stone status post stent placement
Condition: Good
Diet: Diabetic, Carb Controlled
Activity: As tolerated
Driving Restrictions: As prior to admission
Activity Restrictions/Additional Instructions:
You had a kidney stone removed by Dr. Juraez along with placement of a stent in the ureter
The stent is temporary and must be removed
The urology office will call to schedule you for stent removal in approximately 2 weeks
Blood in the urine off and on is expected while the stent is in
Frequent urination, pressure in the kidney when urinating, or sensation similar to the kidney stone are also common
[facility]: [phone]
Your heart rate in the hospital was low, even without taking your metoprolol.
Recommend you discontinue your metoprolol as this causes your heart rate to be even lower.
Your blood pressure in the hospital was normal 107/53 without taking amlodipine.
Recommend stopping amlodipine, and getting your blood pressure checked with your primary care provider in 1 week.
Please follow-up with your primary care provider in 1 week.
Referrals:
Steve Martin MD [Family Provider, Family Practice]
Prescriptions:
New
phenazopyridine 100 mg Tablet
100 mg PO TIDPRN PRN (Reason: burning on urination) Qty: 20 0RF
Continued
multivitamin Tablet
1 tab PO DAILY
aspirin 81 mg Tablet,Delayed Release (Dr/Ec)
81 mg PO DAILY
tamsulosin 0.4 mg Capsule
0.4 mg PO DAILY
ascorbic acid (vitamin C) [Vitamin C] 250 mg Tablet
120 mg PO DAILY
metformin 1,000 mg Tablet
500 mg PO BID
loratadine [Claritin] 10 mg Tablet
10 mg PO DAILY
esomeprazole magnesium 20 mg Capsule,Delayed Release(Dr/Ec)
20 mg PO Q48H
rosuvastatin 20 mg Tablet
20 mg PO DAILY
acetaminophen 325 mg tablet
650 mg PO Q6HPRN PRN (Reason: mild pain) Qty: 14 0RF
folic acid 400 mcg Tablet
0.8 mg PO DAILY
Discontinued
amlodipine 5 mg Tablet
5 mg PO DAILY
metoprolol succinate 25 mg Tablet Extended Release 24 Hr
25 mg PO .DAILYATNOONANDMN
Patient Comments:
takes daily at Noon and at midnight
Discharge Orders:
Discharge Patient (As Directed); Ordered 02/18/25
Ordered By: Jenaro Collins
Discharge Date and Time
Discharge Date/Time: 02/18/25 13:05
Print Language: SWAZI
--- NOTE | 2025-02-18 10:46 | CM ---
CM following re: discharge planning.
Reviewed pt's chart, met with pt.
Discharge order noted. Pt is aware, expressed his agreement with discharge and pt started his friend will transport home.
IMM reviewed, placed on chart, pt has a copy.
PT and OT evaluations noted - pt has no skilled PT/OT needs.
D/C plan: home no needs. Friend to transport.
[2025-02-18 11:07] LABS: Glucose - Point of Care 113 mg/dl (70-99)
[2025-02-18 11:24] VITALS: BP 107/53
== END 2025-02-18 13:05 | disposition home or self-care (01) | DRG 660 ==
LOC: 2 SOUTH 23:37
PROVIDERS: Clinical Nurse Specialist Family Health; Internal Medicine; ADMITTING PHYSICIAN Internal Medicine; ATTENDING PHYSICIAN Family Medicine; CONSULT PHYSICIAN Urology; EMERGENCY PHYSICIAN Emergency Medicine; FAMILY PHYSICIAN Family Medicine
PROC: 0TC68ZZ Extirpation of Matter from Right Ureter, Via Natural or Artificial Opening Endoscopic (ICD-10-PCS; 2025-02-16)
PROC: 0T768DZ Dilation of Right Ureter with Intraluminal Device, Via Natural or Artificial Opening Endoscopic (ICD-10-PCS; 2025-02-16)
DX: N20.0 Calculus of kidney (principal); E87.1 Hypo-osmolality and hyponatremia; N17.9 Acute kidney failure, unspecified; D50.9 Iron deficiency anemia, unspecified; E78.5 Hyperlipidemia, unspecified; I10 Essential (primary) hypertension; Z87.442 Personal history of urinary calculi; I49.3 Ventricular premature depolarization; Z92.3 Personal history of irradiation; Z85.46 Personal history of malignant neoplasm of prostate; E11.9 Type 2 diabetes mellitus without complications; K21.9 Gastro-esophageal reflux disease without esophagitis; K57.30 Diverticulosis of large intestine without perforation or abscess without bleeding; G89.29 Other chronic pain; Z79.82 Long term (current) use of aspirin; Z79.84 Long term (current) use of oral hypoglycemic drugs; Z79.899 Other long term (current) drug therapy
CPT/HCPCS: 74018; 74176; 76000; 80048; 80053; 81003; 81015; 82365; 82962; 83036; 83690; 83930; 83935; 84300; 84443; 85025; 85027; 93005; 96361; 96374; 96375; 97161; 99284